=== PATIENT | male | born 1945 | race Caucasian/White ===

== ENCOUNTER 2020-08-05 11:41 | Observation (INO) ==
[2020-08-05] MEDS ORDERED: 0.9 % Sodium Chloride 2,000 ML ONE (11:49)
[2020-08-05] MEDS ORDERED: Heparin 1,000 UNITS/500 mL 500 ML ONE ×3 (11:49→14:11)
[2020-08-05] MEDS ORDERED: *HR* FentaNYL (PF) 100 MCG/2 ML VIAL ONE ×2 (11:49→12:57)
[2020-08-05] MEDS ORDERED: *HR* Midazolam HCl 2 MG/2 ML VIAL ONE (11:49)
[2020-08-05] MEDS ORDERED: *HR* Heparin 10,000 UNIT/10 ML VIAL ONE ×3 (11:50→17:18)
[2020-08-05] MEDS ORDERED: ISOVUE-370 200 ML INFUS..BTL ONE ×2 (11:50→14:34)
[2020-08-05] MEDS ORDERED: Nitroglycerin 1,000 MCG/10 ML VIAL IV ONE (11:50)
[2020-08-05] MEDS ORDERED: Tirofiban 12.5 MG/250ML 12.5 MG/250 ML BAG ONE (12:14)
[2020-08-05] MEDS ORDERED: D5% in Water 250 ML ONE ×2 (13:09→17:17)
[2020-08-05] MEDS ORDERED: 0.9 % Sodium Chloride 1,000 ML ONE ×2 (13:12→15:54)
[2020-08-05] MEDS ORDERED: Midazolam HCl 50 MG/100 ML IV.SOLN IVC SCH (13:15)
[2020-08-05] MEDS ORDERED: FentaNYL (PF) 1,000 MCG/100 ML IV.SOLN IVC SCH (13:15)
[2020-08-05] MEDS ORDERED: *HR* Atropine Sulfate 1 MG/10 ML SYRINGE ONE ×2 (13:22→15:29)
[2020-08-05] MEDS ORDERED: Furosemide 40 MG/4 ML VIAL ONE ×2 (13:27→13:29)
[2020-08-05] MEDS ORDERED: Naloxone 0.4 MG/ML INJ IVP PRN (15:45)
[2020-08-05] MEDS ORDERED: Perflutren Lipid Microsphere 1.3 ML in 0.9 % Sodium Chloride 8.7 ML IVP PRN (15:47)
[2020-08-05] MEDS ORDERED: 0.9 % Sodium Chloride 500 ML ONE (16:07)
[2020-08-05] MEDS ORDERED: *HR* Rocuronium Bromide 100 MG/10 ML VIAL IVP ONE (17:58)
[2020-08-05] MEDS ORDERED: *HR* Midazolam HCl 5 MG/5 ML VIAL IVP ONE (17:58)
[2020-08-09 07:53] LABS: ABG Base Excess -10 mEq/L (-2 to 3); ABG Chloride 109 mEq/L (98-107); ABG Glucose 224 mg/dL (60-95); ABG HCO3 18 mEq/L (21-27); ABG Ionized Calcium 1.08 mmol/L (1.15-1.35); ABG Oxygen Saturation 100 % (95-98); ABG PCO2 45 mmHg (35-45); ABG PH 7.22 pH Units (7.32-7.45); ABG PO2 215 mmHg (85-104); ABG TCO2 20 mEq/L (20-26)
== END 2020-08-05 17:59 | disposition short-term general hospital (02) ==
LOC: CDU → ICNU → OBSVTOIN 12:30 → ICNU 19:15
PROVIDERS: ADMIT Internal Medicine Cardiovascular Disease; ATTEND Internal Medicine Cardiovascular Disease